=== PATIENT | male | born 1980 | race Caucasian/White ===

== ENCOUNTER 2020-11-25 23:42 | Emergency (ER) | payer OTHER ==
[~2020-11-25] VITALS: Ht 172.7 cm; Wt 68.0 kg
--- NOTE | 2020-11-26 00:10 | NUR ---
PT BIBS C/O HEARING VOICES. +S/I PLAN TO "JUMP OFF A BRIDGE". PT ALERT AND ORIENTED X3. AMBULATORY WITH NON LABORED BREATHING.
--- NOTE | 2020-11-26 00:15 | NUR ---
URINE COLLECTED AND SENT TO LAB
[2020-11-26 00:19] LABS: BASOPHILS % (AUTO) 0.3 % (0.0-2.0); EOSINOPHILS % (AUTO) 0.5 % (0.0-6.0); HEMATOCRIT 46 % (39-51); HEMOGLOBIN 15.6 g/dL (13.5-17.5); LYMPHOCYTES # (AUTO) 2.8 K/uL (0.8-4.8); LYMPHOCYTES % (AUTO) 26.9 % (20.0-44.0); MEAN CORPUSCULAR HGB CONC 34 g/dl (31.0-36.0); MEAN CORPUSCULAR VOLUME 95 fL (80-96); MONOCYTES # (AUTO) 0.9 K/uL (0.1-1.30); MONOCYTES % (AUTO) 8.1 % (2.0-12.0); NEUTROPHILS # (AUTO) 6.8 K/uL (1.8-8.9); NEUTROPHILS % (AUTO) 64.2 % (43.0-81.0); PLATELET COUNT (AUTO) 545 K/uL (150-450); RED BLOOD CELL COUNT(AUTO) 4.81 MIL/uL (4.5-6.0); WHITE BLOOD COUNT (AUTO) 10.6 K/uL (4.3-11.0)
[2020-11-26 00:20] LABS: BILIRUBIN,URINE Negative (NEGATIVE); COLOR,URINE YELLOW (YELLOW); LEUKOCYTE ESTERASE ,URINE Negative (NEGATIVE); NITRITE, URINE Negative (NEGATIVE); PROTEIN,URINE 100 mg/dl (NEGATIVE); UGLUCOSE Negative (NEGATIVE); UROBILINOGEN,URINE 0.2 EU/dL (0.2)
--- NOTE | 2020-11-26 00:20 | NUR ---
CLINICAL TECHNICIAN @ BEDSIDE
[2020-11-26 00:28] LABS: CALCIUM, SERUM 8.8 mg/dL (8.5-10.1); CREATININE 0.9 mg/dL (0.6-1.3); POTASSIUM 3.7 mmol/L (3.5-5.1)
[2020-11-26 00:32] LABS: ALBUMIN 4.6 g/dL (3.4-5.0); BILIRUBIN,DIRECT 0.1 mg/dL (0.0-0.2); BILIRUBIN,TOTAL 0.4 mg/dL (0.2-1.0); TOTAL PROTEIN, SERUM 8.4 g/dL (6.4-8.2)
--- NOTE | 2020-11-26 04:51 | NUR ---
facesheet and clinicals faxed to [facility].
[2020-11-26 05:11] VITALS: BP 118/91
--- NOTE | 2020-11-26 09:37 | NUR ---
SO [facility] CALLED AND WAS NOTIFIED THAT PT HAS BEEN ACCEPTED TO THE FACILITY AFTER 1330.
--- NOTE | 2020-11-26 10:06 | NUR ---
CALLED [facility] FOR BLS TRANSPORT FOR PT. [phone]
--- NOTE | 2020-11-26 12:14 | NUR ---
REPORT GIVEN TO NURSE BERNARDO FROM [facility]
--- NOTE | 2020-11-26 12:19 | NUR ---
ACCEPTING DOCTOR - DR. MILLAN
== END 2020-11-26 13:08 | disposition left against medical advice (07) ==
LOC: ER 23:42
DX: R45.851 Suicidal ideations (principal); Z20.822 Contact with and (suspected) exposure to COVID-19; F19.10 Other psychoactive substance abuse, uncomplicated; Z53.29 Procedure and treatment not carried out because of patient's decision for other reasons
CPT/HCPCS: 36415; 80048; 80076; 80143; 80307; 80320 ×2; 81003; 85025; 87426; 99285; C9803; G0480